=== PATIENT | female | born 1970 | race African-American/Black ===

== ENCOUNTER 2017-06-15 12:19 | Emergency (ER) | payer MEDICAID ==
[~2017-06-15] VITALS: Ht 172.7 cm; Wt 64.0 kg
[2017-06-15] MEDS ORDERED: ONDANSETRON HCL 4MG/2ML VIAL IV STA (13:08)
[2017-06-15] MEDS ORDERED: SODIUM CHLORIDE 0.9% 1,000 ML IV ONE (13:08)
[2017-06-15 13:25] LABS: BASOPHILS % 0.4 % (0.0-2.0); EOSINOPHILS % 0.9 % (0.0-5.0); HEMATOCRIT. 44.4 % (36.0-48.0); HEMOGLOBIN. 14.9 g/dL (12.0-16.0); LYMPHOCYTES % 18.4 % (20.0-50.0); MEAN CORPUSCULAR HEMOGLOBIN 30.5 pg (28.0-32.0); MEAN CORPUSCULAR VOLUME 91.1 fL (81.0-99.0); MEAN PLATELET VOLUME 8.3 fl (7.4-10.4); MONOCYTES % 8.1 % (2.0-8.0); NEUTROPHILS % 72.2 % (40.0-76.0); PLATELET 248 x1000/uL (130-400); RED BLOOD CELL COUNT 4.87 mill/uL (4.2-5.4)
[2017-06-15 13:33] LABS: CHLORIDE 105 mEq/L (98-107)
[2017-06-15 13:34] LABS: CLARITY URINE CLOUDY (CLEAR); COLOR URINE YELLOW (YELLOW); KETONES URINE TRACE (NEGATIVE); LEUKOCYTE ESTERASE URINE NEGATIVE (NEGATIVE); NITRITE URINE NEGATIVE (NEGATIVE); OCCULT BLOOD URINE NEGATIVE (NEGATIVE); PH URINE 5.5 (4.5-8.0); PROTEIN URINE NEGATIVE (NEGATIVE); SPECIFIC GRAVITY URINE 1.023 (1.005-1.030)
[2017-06-15 13:35] LABS: PROTHROMBIN TIME 10.6 sec (9.4-11.6)
[2017-06-15 13:41] LABS: ETHANOL BLOOD < 10 mg/dL
[2017-06-15 14:04] LABS: *AMPHETAMINES SCREEN URINE NEGATIVE (NEGATIVE); *BARBITURATES SCREEN URINE NEGATIVE (NEGATIVE); *BENZODIAZEPINES SCREEN URINE NEGATIVE (NEGATIVE); *COCAINE SCREEN URINE NEGATIVE (NEGATIVE); METHADONE URINE SCREEN NEGATIVE (NEGATIVE); OPIATES URINE SCREEN NEGATIVE (NEGATIVE); PHENCYCLIDINE URINE SCREEN NEGATIVE (NEGATIVE)
[2017-06-15 14:05] LABS: CANNABINOID URINE SCREEN PRESUMTIVE POSITIVE (NEGATIVE)
[2017-06-15 14:17] VITALS: BP 112/54
== END 2017-06-15 16:30 | disposition home or self-care (01) ==
LOC: ER 13:09
DX: R20.0 Anesthesia of skin (principal); R11.2 Nausea with vomiting, unspecified; R51 Headache; Z88.0 Allergy status to penicillin; E78.00 Pure hypercholesterolemia, unspecified; Z87.891 Personal history of nicotine dependence
CPT/HCPCS: 36415; 70450; 80053; 80305; 81003; 81025; 85025; 85610; 93005; 96361; 96374; 99285; G0482; J2405; J7030

== ENCOUNTER 2017-08-11 16:04 | Emergency (ER) | payer MEDICAID ==
[~2017-08-11] VITALS: Ht 170.2 cm; Wt 60.0 kg
[2017-08-11] MEDS ORDERED: SODIUM CHLORIDE 0.9% 1,000 ML IV ONE (19:50)
[2017-08-11] MEDS ORDERED: ONDANSETRON HCL 4MG/2ML VIAL IV STA (19:50)
[2017-08-11 20:25] LABS: HEMATOCRIT. 38.6 % (36.0-48.0); HEMOGLOBIN. 13.7 g/dL (12.0-16.0); MEAN CORPUSCULAR HEMOGLOBIN 32.3 pg (28.0-32.0); MEAN CORPUSCULAR VOLUME 90.7 fL (81.0-99.0); MEAN PLATELET VOLUME 8.5 fl (7.4-10.4); PLATELET 238 x1000/uL (130-400); RED BLOOD CELL COUNT 4.26 mill/uL (4.2-5.4); RED CELL DISTRIBUTION WIDTH 14.2 % (11.6-14.6)
[2017-08-11 20:29] LABS: CHLORIDE 103 mEq/L (98-107)
[2017-08-11 20:34] LABS: CLARITY URINE CLOUDY (CLEAR); COLOR URINE YELLOW (YELLOW); KETONES URINE 3+ (NEGATIVE); LEUKOCYTE ESTERASE URINE NEGATIVE (NEGATIVE); NITRITE URINE NEGATIVE (NEGATIVE); OCCULT BLOOD URINE NEGATIVE (NEGATIVE); PH URINE 5.5 (4.5-8.0); PROTEIN URINE TRACE (NEGATIVE); SPECIFIC GRAVITY URINE 1.032 (1.005-1.030); UROBILINOGEN URINE 0.2 E.U./dL (0.2-1.0)
[2017-08-11 20:52] LABS: B-HCG QUANTITATIVE 111764 mIU/mL (<3)
[2017-08-11 20:55] LABS: PLATELET ESTIMATE NORMAL
[2017-08-11] MEDS ORDERED: ONDANSETRON HCL 4MG/2ML VIAL IV ONE (22:00)
[2017-08-11 23:29] VITALS: BP 102/66
== END 2017-08-11 23:57 | disposition home or self-care (01) ==
LOC: ER 16:04
DX: O21.0 Mild hyperemesis gravidarum (principal); O99.321 Drug use complicating pregnancy, first trimester; F12.10 Cannabis abuse, uncomplicated; O26.891 Other specified pregnancy related conditions, first trimester; M54.5 Low back pain; O09.521 Supervision of elderly multigravida, first trimester; Z3A.11 11 weeks gestation of pregnancy; Z88.0 Allergy status to penicillin
CPT/HCPCS: 36415; 76801; 80053; 81003; 81025; 83690; 84702; 85025; 96361; 96374; 96375; 99285; J2405; J7030

== ENCOUNTER 2018-05-08 22:17 | Emergency (ER) | payer MEDICAID ==
[~2018-05-08] VITALS: Ht 172.7 cm; Wt 70.0 kg
[~2018-05-08 22:17] MED LIST: AMLO5TAB88 PO; ATOR10TA PO; DOCU100T PO; FAMO20TA8 PO; GABA-529 PO; HYDR100T26 PO; KEPP500 PO; TRAM50TA3 PO
[2018-05-08] MEDS ORDERED: LEVETIRACETAM 500MG PREMIX 100 ML IV ONE (23:00)
[2018-05-08] MEDS ORDERED: LEVETIRACETAM 500MG TABLET PO ONE (23:15)
[2018-05-08 23:17] VITALS: BP 106/73
== END 2018-05-08 23:19 | disposition home or self-care (01) ==
LOC: ER 22:17
DX: Z76.0 Encounter for issue of repeat prescription (principal); G40.909 Epilepsy, unspecified, not intractable, without status epilepticus; Z86.73 Personal history of transient ischemic attack (TIA), and cerebral infarction without residual deficits
CPT/HCPCS: 99283

== ENCOUNTER 2018-07-18 02:07 | Inpatient (IN) | payer MEDICAID ==
[~2018-07-18] VITALS: Ht 172.7 cm; Wt 70.8 kg
[2018-07-18 03:12] LABS: CLARITY URINE CLOUDY (CLEAR); COLOR URINE YELLOW (YELLOW); KETONES URINE TRACE (NEGATIVE); LEUKOCYTE ESTERASE URINE TRACE (NEGATIVE); NITRITE URINE NEGATIVE (NEGATIVE); OCCULT BLOOD URINE 3+ (NEGATIVE); PH URINE 5.5 (4.5-8.0); PROTEIN URINE TRACE (NEGATIVE); SPECIFIC GRAVITY URINE 1.032 (1.005-1.030)
[2018-07-18 03:13] LABS: BASOPHILS % 0.5 % (0.0-2.0); EOSINOPHILS % 1.2 % (0.0-5.0); HEMATOCRIT. 43.1 % (36.0-48.0); HEMOGLOBIN. 14.5 g/dL (12.0-16.0); LYMPHOCYTES % 46.1 % (20.0-50.0); MEAN CORPUSCULAR HEMOGLOBIN 30.4 pg (28.0-32.0); MEAN CORPUSCULAR VOLUME 90.1 fL (81.0-99.0); MEAN PLATELET VOLUME 9.2 fl (7.4-10.4); MONOCYTES % 7.1 % (2.0-8.0); NEUTROPHILS % 45.1 % (40.0-76.0); PLATELET 210 x1000/uL (130-400); RED BLOOD CELL COUNT 4.78 mill/uL (4.2-5.4); RED CELL DISTRIBUTION WIDTH 14.7 % (11.6-14.6)
[2018-07-18 03:21] LABS: PARTIAL THROMBOPLASTIN TIME 28.8 sec (23.4-31.0); PROTHROMBIN TIME 10.5 sec (9.1-11.1)
[2018-07-18 03:26] LABS: CHLORIDE 109 mEq/L (98-107)
[2018-07-18 03:29] LABS: ETHANOL BLOOD < 10 mg/dL
[2018-07-18] MEDS ORDERED: LEVOFLOXACIN 500MG PREMIX 100 ML IV ONE (04:15)
[2018-07-18] MEDS ORDERED: MORPHINE SULFATE 4 MG/ML CPJ (NOT FOR IM USE) IV ONE (05:15)
[2018-07-18] MEDS ORDERED: ONDANSETRON HCL 4MG/2ML INJ IV ONE (05:15)
[2018-07-18 06:25] VITALS: BP 93/60
[2018-07-18] MEDS ORDERED: ONDANSETRON HCL 4MG/2ML INJ IV PRN (07:00)
[2018-07-18] MEDS ORDERED: ACETAMINOPHEN 325MG TABLET PO PRN (07:00)
[2018-07-18] MEDS ORDERED: HYDROCODONE/ACETAMINOPHEN 5/325MG TABLET PO PRN (07:00)
[2018-07-18] MEDS ORDERED: IPRATROPIUM/ALBUTEROL 0.5-3(2.5)MG/3ML NEB INH PRN (07:00)
[2018-07-18] MEDS ORDERED: DOCUSATE SODIUM 100MG CAPSULE PO PRN (07:00)
[2018-07-18 08:15] VITALS: BP 101/54
[2018-07-18 08:28] LABS: PHOSPHORUS 3.2 mg/dL (2.5-4.9)
[2018-07-18] MEDS ORDERED: LEVETIRACETAM 500MG TABLET PO SCH (10:00)
[2018-07-18 10:02] VITALS: BP 105/64
[2018-07-18] MEDS: AMLODIPINE 5MG TABLET PO SCH (11:15)
[2018-07-18 11:30] VITALS: BP 105/64
[2018-07-18] MEDS: LEVETIRACETAM 500MG TABLET PO SCH ×2 (11:58→21:20)
[2018-07-18 13:33] LABS: *COCAINE SCREEN URINE NEGATIVE (NEGATIVE); METHADONE URINE SCREEN NEGATIVE (NEGATIVE)
[2018-07-18 13:34] LABS: *AMPHETAMINES SCREEN URINE NEGATIVE (NEGATIVE); *BARBITURATES SCREEN URINE NEGATIVE (NEGATIVE); *BENZODIAZEPINES SCREEN URINE NEGATIVE (NEGATIVE); OPIATES URINE SCREEN NEGATIVE (NEGATIVE); PHENCYCLIDINE URINE SCREEN NEGATIVE (NEGATIVE)
[2018-07-18 13:35] LABS: CANNABINOID URINE SCREEN PRESUMTIVE POSITIVE (NEGATIVE)
[2018-07-18] MEDS: GABAPENTIN 100MG CAPSULE PO SCH ×2 (13:36→21:21)
[2018-07-18] MEDS: HYDRALAZINE HCL 100MG TABLET PO SCH ×2 (13:49→21:24)
[2018-07-18] MEDS ORDERED: MORPHINE SULFATE 4 MG/ML CPJ (NOT FOR IM USE) IV PRN (14:15)
[2018-07-18 15:51] VITALS: BP 100/64
[2018-07-18] MEDS: MORPHINE SULFATE 4 MG/ML CPJ (NOT FOR IM USE) IV PRN (16:44)
[2018-07-18 20:00] VITALS: BP 91/74
[2018-07-18] MEDS: ATORVASTATIN CALCIUM 40MG TABLET PO SCH (21:19)
[2018-07-18] MEDS: FAMOTIDINE 20MG TABLET PO SCH (21:23)
[2018-07-18] MEDS: LORAZEPAM 0.5MG TABLET PO PRN (21:34)
[2018-07-19] VITALS: BP 99/55
[2018-07-19 04:00] VITALS: BP 109/58
[2018-07-19] MEDS: HYDRALAZINE HCL 100MG TABLET PO SCH ×3 (05:08→22:33)
[2018-07-19] MEDS: GABAPENTIN 100MG CAPSULE PO SCH ×3 (05:14→22:33)
[2018-07-19 06:19] LABS: BASOPHILS % 0.5 % (0.0-2.0); EOSINOPHILS % 1.4 % (0.0-5.0); HEMATOCRIT. 42.9 % (36.0-48.0); HEMOGLOBIN. 14.4 g/dL (12.0-16.0); LYMPHOCYTES % 42.1 % (20.0-50.0); MEAN CORPUSCULAR HEMOGLOBIN 30.5 pg (28.0-32.0); MEAN CORPUSCULAR VOLUME 90.8 fL (81.0-99.0); MEAN PLATELET VOLUME 9.4 fl (7.4-10.4); MONOCYTES % 7.5 % (2.0-8.0); NEUTROPHILS % 48.5 % (40.0-76.0); PLATELET 184 x1000/uL (130-400); RED BLOOD CELL COUNT 4.72 mill/uL (4.2-5.4); RED CELL DISTRIBUTION WIDTH 14.3 % (11.6-14.6)
[2018-07-19 07:58] LABS: CHLORIDE 107 mEq/L (98-107)
[2018-07-19 08:00] VITALS: BP 100/69
[2018-07-19] MEDS: AMLODIPINE 5MG TABLET PO SCH (08:13)
[2018-07-19] MEDS: MORPHINE SULFATE 4 MG/ML CPJ (NOT FOR IM USE) IV PRN ×2 (08:23→18:09)
[2018-07-19] MEDS: LEVETIRACETAM 500MG TABLET PO SCH ×2 (08:23→20:38)
[2018-07-19 11:32] VITALS: BP 108/71
[2018-07-19 20:00] VITALS: BP 117/73
[2018-07-19] MEDS: ATORVASTATIN CALCIUM 40MG TABLET PO SCH (20:38)
[2018-07-19] MEDS: FAMOTIDINE 20MG TABLET PO SCH (20:38)
[2018-07-19] MEDS: LORAZEPAM 0.5MG TABLET PO PRN (22:33)
[2018-07-20] VITALS: BP 107/65
[2018-07-20] MEDS: MORPHINE SULFATE 4 MG/ML CPJ (NOT FOR IM USE) IV PRN (00:54)
[2018-07-20 04:00] VITALS: BP 107/66
[2018-07-20] MEDS: HYDRALAZINE HCL 100MG TABLET PO SCH (05:19)
[2018-07-20] MEDS: GABAPENTIN 100MG CAPSULE PO SCH (05:20)
[2018-07-20 08:00] VITALS: BP 110/70
[2018-07-20] MEDS: AMLODIPINE 5MG TABLET PO SCH (09:00)
[2018-07-20] MEDS: LEVETIRACETAM 500MG TABLET PO SCH (09:54)
[2018-07-20] MEDS ORDERED: MECL-127 MT (10:54)
[2018-07-20 11:31] VITALS: BP 110/70
== END 2018-07-20 13:05 | disposition home or self-care (01) | DRG 58 ==
LOC: ER 02:23 → 8WST 04:22 → EDBEDREQTM 04:25 → EDBEDREQ 04:25 → ENRESERV 05:39
PROVIDERS: ADMIT Internal Medicine; ATTEND Internal Medicine
DX: R20.0 Anesthesia of skin (principal); G93.89 Other specified disorders of brain; M48.02 Spinal stenosis, cervical region; E78.5 Hyperlipidemia, unspecified; I10 Essential (primary) hypertension; G40.909 Epilepsy, unspecified, not intractable, without status epilepticus; F12.90 Cannabis use, unspecified, uncomplicated; E78.00 Pure hypercholesterolemia, unspecified; Z86.73 Personal history of transient ischemic attack (TIA), and cerebral infarction without residual deficits; Z88.0 Allergy status to penicillin; R29.810 Facial weakness
CPT/HCPCS: 36415; 70551; 71045; 72141; 80048; 80061; 80305; 80320; 83036; 83735; 83880; 84100; 84443; 84484; 93005; 96365; 96375; 97162; 97165; 99285; C1893; J1956; J2270; J2405; G0480

== ENCOUNTER 2018-08-20 17:27 | Emergency (ER) | payer MEDICAID ==
[~2018-08-20] VITALS: Ht 172.7 cm; Wt 67.9 kg
[~2018-08-20 17:27] MED LIST changes: +MECL-127 MT
[2018-08-20] MEDS ORDERED: CEFTRIAXONE 1 G PREMIX 50 ML IV ONE (18:30)
[2018-08-20] MEDS ORDERED: SODIUM CHLORIDE 0.9% 1000ML BAG (SEPSIS BOLUS) IV ONE (18:30)
[2018-08-20 18:44] LABS: BASOPHILS % 0.4 % (0.0-2.0); EOSINOPHILS % 0.8 % (0.0-5.0); HEMATOCRIT. 41.9 % (36.0-48.0); HEMOGLOBIN. 14.3 g/dL (12.0-16.0); LYMPHOCYTES % 42.8 % (20.0-50.0); MEAN CORPUSCULAR VOLUME 90.7 fL (81.0-99.0); MEAN PLATELET VOLUME 10.6 fl (7.4-10.4); MONOCYTES % 7.4 % (2.0-8.0); NEUTROPHILS % 48.6 % (40.0-76.0); PLATELET 214 x1000/uL (130-400); RED BLOOD CELL COUNT 4.61 mill/uL (4.2-5.4); RED CELL DISTRIBUTION WIDTH 14.4 % (11.6-14.6)
[2018-08-20 18:56] LABS: CHLORIDE 111 mEq/L (98-107)
[2018-08-20 19:09] LABS: PROTHROMBIN TIME 10.6 sec (9.6-11.0)
[2018-08-20 19:31] LABS: CLARITY URINE CLOUDY (CLEAR); COLOR URINE YELLOW (YELLOW); KETONES URINE NEGATIVE (NEGATIVE); LEUKOCYTE ESTERASE URINE NEGATIVE (NEGATIVE); NITRITE URINE NEGATIVE (NEGATIVE); OCCULT BLOOD URINE NEGATIVE (NEGATIVE); PH URINE 6.5 (4.5-8.0); PROTEIN URINE NEGATIVE (NEGATIVE); SPECIFIC GRAVITY URINE 1.006 (1.005-1.030); UROBILINOGEN URINE 0.2 E.U./dL (0.2-1.0)
[2018-08-20] MEDS ORDERED: ASPIRIN 325MG TABLET PO ONE (21:45)
[2018-08-20] MEDS ORDERED: KETOROLAC 30MG/ML VIAL IV ONE (21:45)
[2018-08-20 22:11] VITALS: BP 121/82
[2018-08-20] MEDS ORDERED: CLONIDINE 0.1MG TABLET PO PRN (22:45)
[2018-08-20] MEDS ORDERED: ACETAMINOPHEN 325MG TABLET PO PRN (22:45)
[2018-08-20] MEDS ORDERED: DOCUSATE SODIUM 100MG CAPSULE PO PRN (22:45)
[2018-08-20] MEDS ORDERED: IPRATROPIUM/ALBUTEROL 0.5-3(2.5)MG/3ML NEB INH PRN (22:45)
[2018-08-20] MEDS ORDERED: GUAIFENESIN 200MG/10ML SUGAR FREE UDC PO PRN (22:45)
[2018-08-20] MEDS ORDERED: ONDANSETRON HCL 4MG/2ML INJ IV PRN (22:45)
[2018-08-20] MEDS ORDERED: MAGNESIUM/ALUMINUM HYDROXIDE/SIMETHICONE 30ML UDC PO PRN (22:45)
[2018-08-20] MEDS ORDERED: HYDROCODONE/ACETAMINOPHEN 5/325MG TABLET PO PRN (22:45)
[2018-08-21 11:01] LABS: *COCAINE SCREEN URINE NEGATIVE (NEGATIVE)
[2018-08-21 11:02] LABS: *AMPHETAMINES SCREEN URINE NEGATIVE (NEGATIVE); *BARBITURATES SCREEN URINE NEGATIVE (NEGATIVE); *BENZODIAZEPINES SCREEN URINE NEGATIVE (NEGATIVE); METHADONE URINE SCREEN NEGATIVE (NEGATIVE); OPIATES URINE SCREEN NEGATIVE (NEGATIVE); PHENCYCLIDINE URINE SCREEN NEGATIVE (NEGATIVE)
[2018-08-21 11:09] LABS: CANNABINOID URINE SCREEN PRESUMTIVE POSITIVE (NEGATIVE)
== END 2018-08-21 00:25 | disposition left against medical advice (07) ==
LOC: ER 17:27 → EDBEDREQSVC 21:56 → EDBEDREQ 21:56 → EDBEDREQTM 21:56 → ER 08-21 00:25 → CANBEDREQ 08-21 05:26
DX: I63.9 Cerebral infarction, unspecified (principal); I95.9 Hypotension, unspecified; E78.00 Pure hypercholesterolemia, unspecified; I69.351 Hemiplegia and hemiparesis following cerebral infarction affecting right dominant side; F12.10 Cannabis abuse, uncomplicated; Z88.0 Allergy status to penicillin
CPT/HCPCS: 36415; 70450; 71045; 80053; 80305; 81003; 81025; 83605; 84145; 84484; 85025; 85610; 87040; 87086; 93005; 96365; 96366; 99284; J0696; J7030; Z7610; J1885

== ENCOUNTER 2018-09-28 22:21 | Inpatient (IN) | payer MEDICAID ==
[~2018-09-28] VITALS: Ht 172.7 cm; Wt 67.1 kg
[2018-09-29 00:13] LABS: BASOPHILS % 0.4 % (0.0-2.0); EOSINOPHILS % 1.1 % (0.0-5.0); HEMATOCRIT. 41.5 % (36.0-48.0); HEMOGLOBIN. 14.2 g/dL (12.0-16.0); LYMPHOCYTES % 45.7 % (20.0-50.0); MEAN CORPUSCULAR HEMOGLOBIN 31.2 pg (28.0-32.0); MEAN CORPUSCULAR VOLUME 91.1 fL (81.0-99.0); MEAN PLATELET VOLUME 9.2 fl (7.4-10.4); MONOCYTES % 8.2 % (2.0-8.0); NEUTROPHILS % 44.6 % (40.0-76.0); PLATELET 214 x1000/uL (130-400); RED BLOOD CELL COUNT 4.55 mill/uL (4.2-5.4); RED CELL DISTRIBUTION WIDTH 14.3 % (11.6-14.6)
[2018-09-29 00:16] LABS: CHLORIDE 108 mEq/L (98-107)
[2018-09-29 00:19] LABS: HCG SCREEN NEGATIVE
[2018-09-29 00:20] LABS: ETHANOL BLOOD < 10 mg/dL
[2018-09-29 01:26] LABS: *AMPHETAMINES SCREEN URINE NEGATIVE (NEGATIVE); *BARBITURATES SCREEN URINE NEGATIVE (NEGATIVE); *BENZODIAZEPINES SCREEN URINE NEGATIVE (NEGATIVE); *COCAINE SCREEN URINE NEGATIVE (NEGATIVE)
[2018-09-29 01:27] LABS: METHADONE URINE SCREEN NEGATIVE (NEGATIVE); OPIATES URINE SCREEN NEGATIVE (NEGATIVE); PHENCYCLIDINE URINE SCREEN NEGATIVE (NEGATIVE)
[2018-09-29] MEDS ORDERED: HYDROCODONE/ACETAMINOPHEN 5/325MG TABLET PO NR ×2 (01:30→01:45)
[2018-09-29 01:33] LABS: CANNABINOID URINE SCREEN PRESUMTIVE POSITIVE (NEGATIVE)
[2018-09-29 09:00] VITALS: BP 117/80
[2018-09-29] MEDS ORDERED: ACETAMINOPHEN 325MG TABLET PO PRN (11:00)
[2018-09-29] MEDS ORDERED: ONDANSETRON HCL 4MG/2ML INJ IV PRN (11:00)
[2018-09-29] MEDS ORDERED: ASPI-1158 PO (11:34)
[2018-09-29 11:49] LABS: FOLIC ACID (FOLATE) SERUM 9.5 ng/mL (>5.38)
[2018-09-29 11:52] LABS: T4 FREE 1.11 ng/dL (0.76-1.46)
[2018-09-29] MEDS ORDERED: ENOXAPARIN 40MG/0.4ML SYR SUBCUT SCH (12:00)
[2018-09-29 12:30] VITALS: BP 114/71
[2018-09-29] MEDS ORDERED: POTASSIUM CHLORIDE 20MEQ TABLET SR PO SCH (14:15)
[2018-09-29] MEDS ORDERED: HYDROCODONE/ACETAMINOPHEN 5/325MG TABLET PO PRN (14:15)
[2018-09-29] MEDS: FAMOTIDINE 20MG TABLET PO SCH (15:00)
[2018-09-29] MEDS: ASPIRIN 81MG TABLET PO SCH (15:00)
[2018-09-29] MEDS: GABAPENTIN 300MG CAPSULE PO SCH ×2 (15:00→21:05)
[2018-09-29 16:00] VITALS: BP 126/62
[2018-09-29] MEDS: MORPHINE SULFATE 4 MG/ML CPJ (NOT FOR IM USE) IV PRN (16:19)
[2018-09-29 17:24] VITALS: BP 123/80
[2018-09-29 20:00] VITALS: BP 140/75
[2018-09-29] MEDS ORDERED: ATORVASTATIN CALCIUM 20MG TABLET PO SCH (21:00)
[2018-09-30] VITALS: BP 103/65
[2018-09-30 04:00] VITALS: BP 118/64
[2018-09-30] MEDS: GABAPENTIN 300MG CAPSULE PO SCH (05:52)
[2018-09-30 06:38] LABS: BASOPHILS % 0.5 % (0.0-2.0); EOSINOPHILS % 2.6 % (0.0-5.0); HEMATOCRIT. 44.4 % (36.0-48.0); HEMOGLOBIN. 15.1 g/dL (12.0-16.0); LYMPHOCYTES % 38.1 % (20.0-50.0); MEAN CORPUSCULAR HEMOGLOBIN 30.9 pg (28.0-32.0); MEAN CORPUSCULAR VOLUME 91.2 fL (81.0-99.0); MEAN PLATELET VOLUME 8.9 fl (7.4-10.4); MONOCYTES % 8.4 % (2.0-8.0); NEUTROPHILS % 50.4 % (40.0-76.0); PLATELET 213 x1000/uL (130-400); RED BLOOD CELL COUNT 4.87 mill/uL (4.2-5.4); RED CELL DISTRIBUTION WIDTH 14.2 % (11.6-14.6)
[2018-09-30 06:49] LABS: CHLORIDE 109 mEq/L (98-107)
[2018-09-30 08:44] VITALS: BP 124/79
[2018-09-30] MEDS: MORPHINE SULFATE 4 MG/ML CPJ (NOT FOR IM USE) IV PRN (08:53)
[2018-09-30] MEDS: FAMOTIDINE 20MG TABLET PO SCH (08:56)
[2018-09-30] MEDS: ASPIRIN 81MG TABLET PO SCH (08:56)
[2018-09-30] MEDS ORDERED: CYANOCOBALAMIN 1000MCG/ML VIAL IM SCH (09:00)
[2018-09-30] MEDS ORDERED: DOCUSATE SODIUM 250MG CAPSULE PO SCH (09:00)
[2018-09-30 12:14] VITALS: BP 93/56
[2018-09-30 13:19] VITALS: BP 99/60
[2018-10-09] MEDS ORDERED: DOCUSATE SODIUM 250MG CAPSULE PO SCH (15:00)
[2018-10-14] MEDS ORDERED: CYANOCOBALAMIN 1000MCG/ML VIAL IM SCH (09:00)
== END 2018-09-30 15:48 | disposition home or self-care (01) | DRG 861 ==
LOC: ER 22:21 → 6WST 09-29 04:21 → EDBEDREQTM 09-29 04:26 → EDBEDREQDT 09-29 04:26 → EDBEDREQ 09-29 04:26 → ENRESERV 09-29 07:13 → 6WST 09-29 15:48
PROVIDERS: ADMIT Internal Medicine; ATTEND Internal Medicine
DX: R53.1 Weakness (principal); E87.8 Other disorders of electrolyte and fluid balance, not elsewhere classified; E53.8 Deficiency of other specified B group vitamins; Z88.0 Allergy status to penicillin; M48.02 Spinal stenosis, cervical region; I10 Essential (primary) hypertension; R53.81 Other malaise; E78.00 Pure hypercholesterolemia, unspecified; E78.5 Hyperlipidemia, unspecified; R26.9 Unspecified abnormalities of gait and mobility; E87.6 Hypokalemia; G43.109 Migraine with aura, not intractable, without status migrainosus; I69.351 Hemiplegia and hemiparesis following cerebral infarction affecting right dominant side
CPT/HCPCS: 36415; 70544; 70553; 71045; 72141; 80048; 80305; 80320; 82140; 82607; 82746; 83036; 84439; 84443; 84481; 84703; 93005; 97162; 97165; 99285; J1650; J2270; J3420; G0480

== ENCOUNTER 2019-09-04 00:46 | Emergency (ER) | payer MEDICAID, OTHER ==
[~2019-09-04] VITALS: Ht 175.3 cm; Wt 58.0 kg
[~2019-09-04 00:46] MED LIST changes: -AMLO5TAB88 PO; -HYDR100T26 PO
[2019-09-04] MEDS ORDERED: ONDANSETRON HCL 4MG/2ML INJ IV STA (01:27)
[2019-09-04 01:48] LABS: BASOPHILS % 0.4 % (0.0-2.0); EOSINOPHILS % 0.3 % (0.0-5.0); HEMATOCRIT. 42.8 % (36.0-48.0); HEMOGLOBIN. 14.2 g/dL (12.0-16.0); LYMPHOCYTES % 10.5 % (20.0-50.0); MEAN CORPUSCULAR HEMOGLOBIN 30.8 pg (28.0-32.0); MEAN CORPUSCULAR VOLUME 92.5 fL (81.0-99.0); MEAN PLATELET VOLUME 9.1 fl (7.4-10.4); MONOCYTES % 5.2 % (2.0-8.0); NEUTROPHILS % 83.6 % (40.0-76.0); PLATELET 231 x1000/uL (130-400); RED BLOOD CELL COUNT 4.63 mill/uL (4.2-5.4); RED CELL DISTRIBUTION WIDTH 14.4 % (11.6-14.6)
[2019-09-04 01:49] LABS: CHLORIDE 109 mEq/L (98-107)
[2019-09-04] MEDS ORDERED: KETOROLAC 60MG/2ML VIAL IM STA (02:10)
[2019-09-04] MEDS ORDERED: KETOROLAC 60MG/2ML VIAL IM ONE (02:17)
[2019-09-04] MEDS ORDERED: SODIUM CHLORIDE 0.9% 1,000 ML IV ONE ×2 (02:36→05:11)
[2019-09-04] MEDS ORDERED: METOCLOPRAMIDE HCL 10MG/2ML VIAL IV ONE (02:45)
[2019-09-04 03:28] LABS: *AMPHETAMINES SCREEN URINE NEGATIVE (NEGATIVE); *BARBITURATES SCREEN URINE NEGATIVE (NEGATIVE); *BENZODIAZEPINES SCREEN URINE NEGATIVE (NEGATIVE); *COCAINE SCREEN URINE NEGATIVE (NEGATIVE)
[2019-09-04 03:29] LABS: METHADONE URINE SCREEN NEGATIVE (NEGATIVE); OPIATES URINE SCREEN NEGATIVE (NEGATIVE); PHENCYCLIDINE URINE SCREEN NEGATIVE (NEGATIVE)
[2019-09-04 03:30] LABS: CANNABINOID URINE SCREEN PRESUMTIVE POSITIVE (NEGATIVE)
[2019-09-04 03:39] VITALS: BP 119/58
[2019-09-04] MEDS ORDERED: ONDANSETRON HCL 4MG/2ML INJ IV ONE (04:15)
[2019-09-04] MEDS ORDERED: FAMOTIDINE 20MG/2ML VIAL IV ONE (04:15)
[2019-09-04] MEDS ORDERED: MAGNESIUM/ALUMINUM HYDROXIDE/SIMETHICONE 30ML UDC PO ONE (05:30)
[2019-09-04] MEDS ORDERED: PROCHLORPERAZINE 10MG/2ML VIAL IM ONE (05:30)
== END 2019-09-04 06:36 | disposition home or self-care (01) ==
LOC: ER 00:46
DX: R11.2 Nausea with vomiting, unspecified (principal); R07.89 Other chest pain; K21.9 Gastro-esophageal reflux disease without esophagitis; F41.9 Anxiety disorder, unspecified; F12.10 Cannabis abuse, uncomplicated; F11.10 Opioid abuse, uncomplicated; Z86.73 Personal history of transient ischemic attack (TIA), and cerebral infarction without residual deficits; Z79.899 Other long term (current) drug therapy; Z88.0 Allergy status to penicillin
CPT/HCPCS: 36415; 71045; 80053; 80305; 83880; 84484; 85025; 93005; 96361; 96372; 96374; 96375; 96376; 99285; J0780; J1885; J2405; J2765; J3490; J7030

== ENCOUNTER 2019-09-16 21:29 | Emergency (ER) | payer OTHER ==
[~2019-09-16] VITALS: Ht 172.7 cm; Wt 55.0 kg
[2019-09-16] MEDS ORDERED: ONDANSETRON HCL 4MG/2ML INJ IV ONE (22:45)
[2019-09-16] MEDS ORDERED: HALOPERIDOL LACTATE 5MG/ML VIAL IM ONE (22:45)
[2019-09-16 23:15] LABS: BASOPHILS % 0.2 % (0.0-2.0); EOSINOPHILS % 0.1 % (0.0-5.0); HEMATOCRIT. 41.9 % (36.0-48.0); HEMOGLOBIN. 14.4 g/dL (12.0-16.0); LYMPHOCYTES % 8.1 % (20.0-50.0); MEAN CORPUSCULAR HEMOGLOBIN 31.3 pg (28.0-32.0); MEAN CORPUSCULAR VOLUME 91.1 fL (81.0-99.0); MEAN PLATELET VOLUME 9.1 fl (7.4-10.4); MONOCYTES % 3.8 % (2.0-8.0); NEUTROPHILS % 87.8 % (40.0-76.0); PLATELET 201 x1000/uL (130-400); RED BLOOD CELL COUNT 4.59 mill/uL (4.2-5.4)
[2019-09-16 23:16] LABS: CHLORIDE 111 mEq/L (98-107)
[2019-09-16 23:21] LABS: ETHANOL BLOOD < 10 mg/dL
[2019-09-16] MEDS ORDERED: POTASSIUM CHLORIDE 20MEQ TABLET SR PO SCH (23:45)
[2019-09-17 00:59] LABS: CLARITY URINE CLEAR (CLEAR); COLOR URINE YELLOW (YELLOW); KETONES URINE 4+ (NEGATIVE); LEUKOCYTE ESTERASE URINE NEGATIVE (NEGATIVE); NITRITE URINE NEGATIVE (NEGATIVE); OCCULT BLOOD URINE NEGATIVE (NEGATIVE); PH URINE 5.5 (4.5-8.0); PROTEIN URINE TRACE (NEGATIVE); SPECIFIC GRAVITY URINE 1.022 (1.005-1.030)
[2019-09-17 01:16] LABS: *BARBITURATES SCREEN URINE NEGATIVE (NEGATIVE); *BENZODIAZEPINES SCREEN URINE NEGATIVE (NEGATIVE); *COCAINE SCREEN URINE NEGATIVE (NEGATIVE); METHADONE URINE SCREEN NEGATIVE (NEGATIVE); OPIATES URINE SCREEN NEGATIVE (NEGATIVE)
[2019-09-17 01:17] LABS: PHENCYCLIDINE URINE SCREEN NEGATIVE (NEGATIVE)
[2019-09-17 01:19] LABS: *AMPHETAMINES SCREEN URINE NEGATIVE (NEGATIVE)
[2019-09-17 01:20] LABS: CANNABINOID URINE SCREEN PRESUMTIVE POSITIVE (NEGATIVE)
[2019-09-17 02:30] VITALS: BP 126/78
== END 2019-09-17 03:19 | disposition home or self-care (01) ==
LOC: ER 21:29
DX: F12.188 Cannabis abuse with other cannabis-induced disorder (principal); E87.6 Hypokalemia; Z86.73 Personal history of transient ischemic attack (TIA), and cerebral infarction without residual deficits; Z87.19 Personal history of other diseases of the digestive system; Z88.0 Allergy status to penicillin
CPT/HCPCS: 36415; 80053; 80305; 80320; 81003; 81025; 83690; 84484; 85025; 93005; 96372; 96374; 99284; J1630; J2405; G0480

== ENCOUNTER 2021-01-09 07:48 | Emergency (ER) | payer OTHER, MEDICAID ==
[~2021-01-09] VITALS: Ht 172.7 cm; Wt 80.8 kg
[2021-01-09] MEDS ORDERED: MORPHINE SULFATE 4 MG/ML CPJ (NOT FOR IM USE) IV STA ×2 (08:10→10:46)
[2021-01-09] MEDS ORDERED: ONDANSETRON HCL 4MG/2ML INJ IV STA ×2 (08:10→10:46)
[2021-01-09] MEDS ORDERED: NITROGLYCERIN OINT 1GM/INCH UDPKT TD ONE (08:15)
[2021-01-09 08:52] LABS: BASOPHILS % 0.6 % (0.0-2.0); EOSINOPHILS % 1.4 % (0.0-5.0); HEMATOCRIT. 39.6 % (36.0-48.0); HEMOGLOBIN. 13.9 g/dL (12.0-16.0); MEAN CORPUSCULAR HEMOGLOBIN 31.3 pg (28.0-32.0); MEAN CORPUSCULAR VOLUME 89.4 fL (81.0-99.0); MEAN PLATELET VOLUME 8.5 fl (7.4-10.4); MONOCYTES % 6.2 % (2.0-8.0); NEUTROPHILS % 64.8 % (40.0-76.0); PLATELET 270 x1000/uL (130-400); RED BLOOD CELL COUNT 4.43 mill/uL (4.2-5.4); RED CELL DISTRIBUTION WIDTH 15.3 % (11.6-14.6)
[2021-01-09 09:14] LABS: CHLORIDE 114 mEq/L (98-107)
[2021-01-09 09:16] LABS: PROTHROMBIN TIME 10.6 sec (9.6-11.0)
[2021-01-09 09:18] LABS: ETHANOL BLOOD < 10 mg/dL
[2021-01-09 09:21] LABS: LDL CHOLESTEROL 121 mg/dL (5-100)
[2021-01-09] MEDS ORDERED: ASPIRIN 325MG TABLET PO ONE (09:45)
[2021-01-09 11:59] VITALS: BP 130/70
== END 2021-01-09 12:35 | disposition short-term general hospital (02) ==
LOC: ER 07:48 → EDBEDREQ 08:32 → CANBEDREQ 11:21 → ER 12:35
DX: R07.89 Other chest pain (principal); I69.351 Hemiplegia and hemiparesis following cerebral infarction affecting right dominant side; F12.10 Cannabis abuse, uncomplicated; F17.210 Nicotine dependence, cigarettes, uncomplicated; Z88.0 Allergy status to penicillin
CPT/HCPCS: 36415; 70450; 71045; 80053; 80320; 81025; 82962; 83690; 83721; 83880; 84484; 85025; 85610; 93005; 96374; 96375; 96376; 99291; J2270; J2405; G0480

== ENCOUNTER 2022-09-26 12:40 | Emergency (ER) | payer OTHER, MEDICAID ==
[~2022-09-26] VITALS: Ht 165.1 cm; Wt 64.0 kg
[2022-09-26] MEDS ORDERED: SODIUM CHLORIDE 0.9% 1,000 ML IV ONE (13:30)
[2022-09-26] MEDS ORDERED: ONDANSETRON HCL 4MG/2ML INJ IV STA (13:30)
[2022-09-26 14:45] LABS: HEMATOCRIT. 43.1 % (36.0-48.0); HEMOGLOBIN. 14.8 g/dL (12.0-16.0); MEAN CORPUSCULAR HEMOGLOBIN 31.3 pg (28.0-32.0); MEAN CORPUSCULAR VOLUME 91.4 fL (81.0-99.0); MEAN PLATELET VOLUME 8.7 fl (7.4-10.4); PLATELET 232 x1000/uL (130-400); RED BLOOD CELL COUNT 4.72 mill/uL (4.2-5.4); RED CELL DISTRIBUTION WIDTH 13.4 % (11.6-14.6)
[2022-09-26 14:54] LABS: INR 1.1; PROTHROMBIN TIME 11.5 sec (9.6-11.0)
[2022-09-26 14:57] LABS: CHLORIDE 110 mEq/L (98-107)
[2022-09-26 15:03] LABS: HCG SCREEN INDETERMINATE
[2022-09-26 15:04] LABS: ETHANOL BLOOD < 10 mg/dL (-10)
[2022-09-26] MEDS ORDERED: METOCLOPRAMIDE HCL 10MG/2ML VIAL IV ONE (16:00)
[2022-09-26 16:14] LABS: PLATELET ESTIMATE NORMAL
[2022-09-26] MEDS ORDERED: ASPI-1497 MT (16:15)
[2022-09-26] MEDS ORDERED: ONDA4TAB50 MT (16:15)
[2022-09-26] MEDS ORDERED: CLOP-31 MT ×2 (16:15)
[2022-09-26 17:02] VITALS: BP 129/86
== END 2022-09-26 17:03 | disposition home or self-care (01) ==
LOC: ER 12:40
DX: R11.2 Nausea with vomiting, unspecified (principal); F12.10 Cannabis abuse, uncomplicated; E78.00 Pure hypercholesterolemia, unspecified; Z88.0 Allergy status to penicillin; Z79.899 Other long term (current) drug therapy; Z86.73 Personal history of transient ischemic attack (TIA), and cerebral infarction without residual deficits
CPT/HCPCS: 36415; 74176; 80053; 80320; 83690; 84702; 84703; 85025; 85610; 93005; 96361; 96374; 96375; 99285; C1893; J2405; J2765; J7030; G0480